=== PATIENT | female | born 1970 ===

== ENCOUNTER 2017-09-22 14:52 | Emergency (ER) | payer OTHER ==
[2017-09-22 15:21] VITALS: TEMP 98.4
[2017-09-22] MEDS ORDERED: Sodium Chloride 0.9% 1,000 ML IV ONE (15:41)
[2017-09-22 15:53] VITALS: RESP 18
[2017-09-22 15:58] LABS: BASO # 0.1 K/uL (0.0-0.2); EOS # 0.2 K/uL (0.0-0.7); EOS % 2.2 % (0.0-4.0); HEMOGLOBIN 10.5 g/dL (11.0-16.0); LYMPH # 2.5 K/uL (1.0-4.3); LYMPH % 34.7 % (20.0-40.0); MEAN CELL VOLUME 79.7 fL (81.0-99.0); MEAN CORPUSCULAR HEMOGLOBIN 26.5 pg (27.0-31.0); MEAN CORPUSCULAR HGB CONC 33.2 g/dL (33.0-37.0); MEAN PLATELET VOLUME 8.8 fL (7.2-11.7); MONO # 0.5 K/uL (0.0-0.8); MONO % 6.7 % (0.0-10.0); NEUT % 55.4 % (50.0-75.0); RBC 3.96 Mil/uL (3.80-5.20); RED CELL DISTRIBUTION WIDTH 17.4 % (11.5-14.5); WHITE BLOOD COUNT 7.3 K/uL (4.8-10.8)
[2017-09-22] MEDS ORDERED: Sodium Chloride 0.9% 1,000 ML ONE (16:01)
[2017-09-22 16:22] LABS: ALBUMIN 3.8 g/dL (3.5-5.0); ALT/SGPT 37 U/L (9-52); AST/SGOT 47 U/L (14-36); BLOOD UREA NITROGEN 13 mg/dL (7-17); CALCIUM 8.5 mg/dl (8.6-10.4); GFR AFRICAN-AMERICAN > 60; GFR NON-AFRICAN AMERICAN > 60
[2017-09-22 16:30] LABS: SQUAMOUS EPITHIAL 15 /hpf (0-5); URINE BACTERIA MOD (<OCC); URINE BILIRUBIN NEGATIVE (NEGATIVE); URINE BLOOD 3+ (NEGATIVE); URINE CLARITY Hazy (Clear); URINE COLOR Yellow (YELLOW); URINE GLUCOSE (UA) NORMAL (Normal); URINE LEUKOCYTE ESTERASE 2+ Leu/uL (Negative); URINE PROTEIN 1+ mg/dL (NEGATIVE); URINE UROBILINOGEN NORMAL mg/dL (0.2-1.0)
[2017-09-22 16:33] LABS: B-TYPE NATRIURETIC PEPTIDE 51.5 pg/mL (0-450)
--- NOTE | 2017-09-22 16:40 | RAD ---
PROCEDURE: CHEST RADIOGRAPH, 1 VIEW HISTORY: SOB COMPARISON: None available. FINDINGS: LUNGS: Minor bibasilar atelectasis. PLEURA: No pneumothorax or pleural fluid seen. CARDIOVASCULAR: Normal. OSSEOUS STRUCTURES: No significant abnormalities. VISUALIZED UPPER ABDOMEN: Normal. OTHER FINDINGS: None. IMPRESSION: Minor bibasilar atelectasis.
[2017-09-22 16:42] LABS: BARBITURATES, UR NEGATIVE (NEGATIVE); BENZODIAZEPINES, UR NEGATIVE (NEGATIVE); OPIATES, UR NEGATIVE (NEGATIVE); PHENCYCLIDINE, UR NEGATIVE (NEGATIVE)
--- NOTE | 2017-09-22 16:51 | C.PDOC ---
History Of Present Illness 47yo female, presents to ED today stating she felt dizzy at while and states after she rested a little, there was no resolution. She feels weak and lethargic as well. She also states a "prolonged menstrual period" recently. presently menstruating Time Seen by Provider: 09/22/17 15:18 Chief Complaint (Nursing): Dizziness/Lightheaded History Per: Patient History/Exam Limitations: no limitations Onset/Duration Of Symptoms: Days (1) Current Symptoms Are (Timing): Still Present Additional History Per: Patient Past Medical History Reviewed: Historical Data, Nursing Documentation, Vital Signs Vital Signs: Last Vital Signs Temp 98.4 F 09/22/17 15:16 Pulse 81 09/22/17 17:26 Resp 18 09/22/17 17:26 BP 116/78 09/22/17 17:26 Pulse Ox 99 09/22/17 17:26 - Medical History PMH: No Chronic Diseases Surgical History: No Surg Hx Family History: States: No Known Family Hx - Social History Hx Alcohol Use: No Hx Substance Use: No - Immunization History Hx Tetanus Toxoid Vaccination: No Hx Influenza Vaccination: No Hx Pneumococcal Vaccination: No Review Of Systems Except As Marked, All Systems Reviewed And Found Negative. Constitutional: Positive for: Weakness. Negative for: Fever, Chills Cardiovascular: Negative for: Chest Pain Genitourinary: Positive for: Vaginal Bleeding (on menstrual period right now) Physical Exam - Physical Exam Appears: Non-toxic, No Acute Distress Skin: Normal Color, Warm, Dry Head: Atraumatic, Normacephalic Eye(s): bilateral: Normal Inspection, PERRL, EOMI Oral Mucosa: Moist Neck: Normal ROM, Supple Chest: Symmetrical Cardiovascular: Rhythm Regular Respiratory: Normal Breath Sounds Gastrointestinal/Abdominal: Soft, No Tenderness Rectal: Other (light brown stool; exam done with DACIA Hodge as compatibility test engineer) Extremity: Normal ROM ED Course And Treatment - Laboratory Results Result Diagrams: 09/22/17 15:55 09/22/17 15:55 Lab Interpretation: No Changes Compared To Prior Results (+ microcytic anemia, no prior to compare, guaiac neg argues against GIB) ECG: Interpreted By Me ECG Rhythm: Sinus Rhythm ECG Interpretation: Normal Rate From EC O2 Sat by Pulse Oximetry: 100 (RA) Pulse Ox Interpretation: Normal - Radiology CXR: Interpreted by Me CXR Interpretation: Yes: No Acute Disease Progress Note: IVF Reevaluation Time: 16:49 Reassessment Condition: Improved Medical Decision Making Medical Decision Making: guaiac neg prob anemia due to prolonged uterine bleeding opt f/u. start Iron supplements. Disposition Doctor Will See Patient In The: Office Counseled Patient/Family Regarding: Studies Performed, Diagnosis - Disposition Referrals: [facility] [Outside] [facility] [Outside] [facility] [Outside] Disposition: HOME/ ROUTINE Disposition Time: 16:50 Condition: GOOD Additional Instructions: Hgb 10.5 (moderately low) Continue to take Ferrous Sulfate (Iron supplement) three times/day with meals Follow-up in our outpatient [facility] and/or [facility] for outpatient OBGYN evaluation Call for appointment [facility] can help you make your appointments. Prescriptions: Ferrous Sulfate [Ferosul] 325 mg PO TID #90 tablet Instructions: Anemia Caused by Low Iron, Heavy Periods (DC) Forms: [employer] (Uzbek) - Clinical Impression Clinical Impression: Near syncope, Menorrhagia - Scribe Statement The provider has reviewed the documentation as recorded by the Scribe (Maren Leiva) Provider Attestation: All medical record entries made by the Scribe were at my direction and personally dictated by me. I have reviewed the chart and agree that the record accurately reflects my personal performance of the history, physical exam, medical decision making, and the department course for this patient. I have also personally directed, reviewed, and agree with the discharge instructions and disposition.
[2017-09-22 17:27] VITALS: BP 116/78; PULSE 81
[2017-09-22 18:10] VITALS: O2SAT 100
--- NOTE | 2017-09-23 12:28 | CARD ---
APPROVED REPORT EKG Measurement Heart [id number] <Conclusion> Normal sinus rhythm Normal ECG
== END 2017-09-22 17:38 | disposition home or self-care (01) ==
LOC: C.ER 14:52
DX: R55 Syncope and collapse (principal); N92.0 Excessive and frequent menstruation with regular cycle
CPT/HCPCS: 71045; 80053; 80324; 80345; 80346; 80349; 80353; 80358; 80361; 81001; 82948; 83880; 83992; 84484; 84703; 85025; 93005; 96360; 99285; G0328; J7040